=== PATIENT | male | born 1960 | race Two or more races ===

== ENCOUNTER 2021-11-07 10:41 | Outpatient (CLI) | payer OTHER | END 2021-11-07 11:02 | disposition home or self-care (01) | LOC: TOM 10:41 → EDBD 10:41 → TOM 11:02 | PROVIDERS: ATTEND Otolaryngology Otolaryngology/Facial Plastic Surgery | DX: R13.10 Dysphagia, unspecified (principal) ==

== ENCOUNTER 2021-11-07 11:46 | Outpatient (CLI) | payer OTHER | END 2021-11-07 11:49 | disposition home or self-care (01) | LOC: LAB 11:46 | PROVIDERS: ATTEND Radiology Diagnostic Radiology | DX: R13.10 Dysphagia, unspecified (principal) ==